=== PATIENT | female | born 1955 | race Caucasian/White ===

== ENCOUNTER 2023-06-06 07:56 | Outpatient (CLI) | payer MEDICARE | END 2023-06-06 07:57 | disposition home or self-care (01) | LOC: CSHMRI 07:56 | PROVIDERS: ATTEND Neurological Surgery | DX: M47.26 Other spondylosis with radiculopathy, lumbar region (principal); N83.202 Unspecified ovarian cyst, left side | CPT/HCPCS: 72148 ==